=== PATIENT | female | born 1955 | race Hispanic/Latino ===

== ENCOUNTER 2020-06-05 07:57 | Emergency (ER) | payer BC ==
[~2020-06-05] VITALS: Ht 154.9 cm; Wt 147.9 kg
[2020-06-05] MEDS ORDERED: OXYMETAZOLINE HCL 0.05% NAS 1 SPRAY BTL ONE ×2 (08:11→08:15)
[2020-06-05 08:42] LABS: BASOPHILS % 0.4 % (0.0-1.0); EOSINOPHILS # (AUTO) 0.1 (0.0-0.4); EOSINOPHILS % 0.5 % (0.0-6.0); HEMATOCRIT 39.1 % (34.2-44.1); HEMOGLOBIN 12.3 g/dL (12.0-16.0); LYMPHOCYTES # (AUTO) 2.2 (1.0-3.2); LYMPHOCYTES % 20.6 % (18.0-39.1); MEAN CORPUSCULAR HEMOGLOBIN 28.2 pg (28-32); MEAN CORPUSCULAR HGB CONC 31.5 g/dL (31-35); MEAN CORPUSCULAR VOLUME 89.7 fL (81-99); MONOCYTES # (AUTO) 0.9 (0.2-0.8); NEUTROPHILS # (AUTO) 7.4 (2.1-6.9); NEUTROPHILS % 69.5 % (38.7-80.0); PLATELET COUNT 222 x10e3/uL (140-360); RED BLOOD COUNT 4.36 x10e6/uL (3.6-5.1); RED CELL DISTRIBUTION WIDTH 13.7 % (11.7-14.4)
[2020-06-05] MEDS ORDERED: SILVER NITRATE SWABS ONE (08:45)
[2020-06-05] MEDS ORDERED: SILVER NITRATE SWABS TOP ONE (08:45)
[2020-06-05 08:48] LABS: INR 1.02; PROTHROMBIN TIME 13.9 seconds (11.9-14.5)
[2020-06-05 08:49] LABS: PARTIAL THROMBOPLASTIN TIME 25.9 seconds (23.8-35.5)
[2020-06-05 08:58] LABS: ALANINE AMINOTRANSFERASE 9 IU/L (0-55); ALBUMIN 3.5 g/dL (3.5-5.0); ALKALINE PHOSPHATASE 89 IU/L (40-150); BLOOD UREA NITROGEN 17 mg/dL (7-26); BUN/CREATININE RATIO 20 (6-25); CALCIUM 8.7 mg/dL (8.4-10.2); CARBON DIOXIDE 27 mmol/L (22-29); CHLORIDE 105 mmol/L (98-107); CREATININE, SERUM 0.85 mg/dL (0.57-1.11); EST GLOMERULAR FILTRATION RATE > 60 ML/MIN (60-); GLUCOSE 102 mg/dL (74-118); SODIUM 139 mmol/L (136-145)
[2020-06-05 09:35] VITALS: BP 109/86
== END 2020-06-05 09:39 | disposition home or self-care (01) ==
LOC: ER 08:08
DX: R04.0 Epistaxis (principal); I10 Essential (primary) hypertension; I50.9 Heart failure, unspecified; G47.30 Sleep apnea, unspecified; Z95.810 Presence of automatic (implantable) cardiac defibrillator; Z96.653 Presence of artificial knee joint, bilateral
CPT/HCPCS: 36415; 80053; 85025; 85610; 85730; 99284